=== PATIENT | male | born 1960 | race Caucasian/White ===

== ENCOUNTER → 2022-08-22 09:47 | Outpatient (CLI) | payer OTHER, SELFPAY ==
--- NOTE | ~2022-08-22 | CT_ITS ---
EXAMINATION: CT lung screening DATE: 08/22/2022 10:02 INDICATION: Personal history of nicotine dependence, current smoker with 40 pack year history TECHNIQUE: Computed tomography (CT) of the chest was performed without intravenous contrast. The dose -length product (DLP) was 150.43 mGy-cm. 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 COMPARISON: None FINDINGS: There is mild emphysema. There is a 2 mm nodule of the right upper lobe. There is a 3 mm no dule of the left lower lobe. No pleural effusion or pneumothorax. There is mild atelectasis of the lo wer lobes. The lungs are free of focal airspace opacities. Calcified coronary artery atherosclerosis is noted. No pathologically enlarged thoracic lymph nodes are identified. The heart size is normal. T here is a 2 mm stone of the right kidney upper pole. There are areas of cortical scarring in the part ially visualized right kidney. There is moderate thoracic spondylosis. IMPRESSION: 1. Lung-RADS category 2: Benign appearance or behavior. Continue annual screening with noncontrast lo w-dose chest CT in 12 months. Reviewed, dictated and finalized at location A. 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 Lung-RADS category 2: Benign appearance or behavior. Continue annual screeni ng with noncontrast low-dose chest CT in 12 months.
== END ==
PROVIDERS: PCP Family Medicine; Visit Provider Family Medicine
DX: Z12.2 Encounter for screening for malignant neoplasm of respiratory organs (principal); F17.210 Nicotine dependence, cigarettes, uncomplicated
CPT/HCPCS: 71271